=== PATIENT | female | born 1985 | race African-American/Black ===

== ENCOUNTER 2023-04-11 14:53 | Outpatient (CLI) | payer BC | END 2023-04-11 14:54 | disposition home or self-care (01) | LOC: DTY/OP 14:53 | PROVIDERS: ATTEND Surgery | DX: E66.01 Morbid (severe) obesity due to excess calories (principal) | CPT/HCPCS: 97802 ==

== ENCOUNTER 2023-06-28 08:00 | Inpatient (IN) | payer BC ==
[2023-07-05 15:19] VITALS: BMI 53.8
[2023-07-13] MEDS ORDERED: EPINEPHrine 1 MG/ML VIAL ONE (06:52)
[2023-07-13] MEDS ORDERED: Bupivacaine 0.25% HCL 30 ML VIAL ONE (06:52)
[2023-07-13] MEDS ORDERED: fentaNYL 50 mcg/mL 1 mL Vial ONE ×2 (07:19→10:20)
[2023-07-13] MEDS ORDERED: Rocuronium Bromide 10 MG/ML (10ML VIAL) ONE (07:19)
[2023-07-13] MEDS ORDERED: Esmolol 100 MG/10 ML VIAL ONE (07:19)
[2023-07-13] MEDS ORDERED: Lidocaine 1% PF 5 ML VIAL ONE (07:19)
[2023-07-13] MEDS ORDERED: Midazolam HCl 2 mg/2 ml Vial ONE (07:19)
[2023-07-13] MEDS ORDERED: PROPOFOL 20 ML ONE ×2 (07:19→09:12)
[2023-07-13] MEDS ORDERED: CEFAZOLIN 2 GM VIAL ONE (07:21)
[2023-07-13] MEDS ORDERED: Sodium Chloride 0.9% 100 ML ONE (07:21)
[2023-07-13] MEDS ORDERED: Heparin 5,000 UNITS/ML VIAL ONE (07:21)
[2023-07-13] MEDS ORDERED: HYDROmorphone 0.5 MG/0.5 ML SYRINGE ONE (07:39)
[2023-07-13] MEDS ORDERED: Ondansetron PF 4 MG/2 ML Vial ONE (09:03)
[2023-07-13] MEDS ORDERED: Dexamethasone 4 mg/ml Vial ONE (09:03)
[2023-07-13] MEDS ORDERED: SUGAMMADEX SODIUM 200 MG/2 ML VIAL ONE (09:05)
[2023-07-13] MEDS ORDERED: HYDROmorphone 2 MG/ML VIAL ONE (09:13)
[2023-07-13] MEDS ORDERED: diphenhydrAMINE 50 MG/ML VIAL IVP PRN ×2 (09:31→10:02)
[2023-07-13] MEDS ORDERED: Glucagon 1 MG/ML KIT IM PRN (09:31)
[2023-07-13] MEDS ORDERED: Dextrose 50% Abboject 50 ML SYRINGE SLOW IVP PRN (09:31)
[2023-07-13] MEDS ORDERED: Ondansetron PF 4 MG/2 ML Vial IVP PRN (09:31)
[2023-07-13] MEDS ORDERED: Dextrose 5% in Water 1,000 ML IV PRN (09:31)
[2023-07-13] MEDS ORDERED: Hydrocodone-Acetamin 15 ML UDCUP PO PRN (09:31)
[2023-07-13] MEDS ORDERED: Promethazine HCl 25 MG/ML VIAL IM PRN ×2 (09:31→10:02)
[2023-07-13] MEDS ORDERED: hydrALAZINE 20 MG/ML VIAL SLOW IVP PRN (09:31)
[2023-07-13] MEDS ORDERED: Ipratropium/Albuterol 3 ML NEB NEB PRN (09:31)
[2023-07-13] MEDS ORDERED: diphenhydrAMINE 50 MG/ML VIAL IM PRN (10:02)
[2023-07-13] MEDS ORDERED: diphenhydrAMINE 25 MG CAP PO PRN (10:02)
[2023-07-13] MEDS ORDERED: FENTANYL 500 MCG/10 ML VIAL 2,000 MCG in Sodium Chloride 0.9% 60 ML IV PRN (10:02)
[2023-07-13] MEDS ORDERED: Naloxone HCl 0.4 mg/ml Vial IV PRN (10:02)
[2023-07-13] MEDS ORDERED: Communication Order-Pharmacy FS SCH (10:15)
[2023-07-13] MEDS: D5 1/2 NS w/20 mEq KCL 1,000 ML IV SCH ×2 (11:35→15:24)
[2023-07-13] MEDS ORDERED: Ketorolac Tromethamine 30 MG (1 mL) VIAL IVP SCH (12:00)
[2023-07-13] MEDS: CEFAZOLIN 2 GM in Sodium Chloride 0.9% 100 ML IVPB SCH (15:24)
[2023-07-13] MEDS: Ondansetron PF 4 MG/2 ML Vial IVP PRN (16:44)
[2023-07-14] MEDS: D5 1/2 NS w/20 mEq KCL 1,000 ML IV SCH ×3 (00:01→17:16)
[2023-07-14] MEDS: CEFAZOLIN 2 GM in Sodium Chloride 0.9% 100 ML IVPB SCH (00:01)
[2023-07-14] MEDS: Ondansetron PF 4 MG/2 ML Vial IVP PRN (04:34)
[2023-07-14 05:24] LABS: #Monocytes 0.9 thou/uL (0.11-0.59); #Neutrophils 10.6 thou/uL (1.40-6.50); %Basophils 0.2 % (0.0-1.0); %Eosinophils 0.1 % (0.0-10.0); %Lymphocytes 15.3 % (21.0-51.0); %Monocytes 6.6 % (0.0-10.0); %Neutrophils 77.4 % (42.0-75.0); Hematocrit 35.2 % (36.0-47.0); Mean Corpuscular HGB CONC 34.1 g/dL (32.0-36.0); Mean Corpuscular Hemoglobin 31.4 pg (27.0-31.0); Mean Corpuscular Volume 92.1 fl (78.0-98.0); Mean Platelet Volume 9.7 fL (7.4-10.4); Platelet Count 226 10x3/uL (130-400); RBC Distribution Width 13.6 % (11.5-14.5); Red Blood Cell (RBC) Count 3.82 mill/uL (4.20-5.40); White Blood Cell (WBC) Count 13.7 10x3/uL (4.8-10.8)
[2023-07-14 05:56] LABS: Anion Gap 11 mmol/L (10-20); BUN (Urea Nitrogen) 8 mg/dL (7.0-18.7); Calc. Creatinine Clearance 230 mL/min (70-130); Calcium 8.6 mg/dL (7.8-10.44); Carbon Dioxide 22 mmol/L (22-29); Chloride 106 mmol/L (98-107); Estimated GFR 97; Glucose 127 mg/dL (70-105); Potassium 3.7 mmol/L (3.5-5.1); Sodium 135 mmol/L (136-145)
[2023-07-14] MEDS ORDERED: Scopolamine 1 mg/72 hour Patch TD SCH (08:00)
[2023-07-14] MEDS: Enoxaparin 40 MG (0.4 mL) SYRINGE SC SCH (08:39)
[2023-07-14] MEDS: Pantoprazole 40 MG VIAL IVP SCH (08:39)
[2023-07-14] MEDS: Hydrocodone-Acetamin 15 ML UDCUP PO PRN ×2 (14:41→21:40)
[2023-07-15] MEDS: D5 1/2 NS w/20 mEq KCL 1,000 ML IV SCH ×2 (01:13→08:24)
[2023-07-15 07:59] VITALS: TEMP 98.6
[2023-07-15] MEDS: Pantoprazole 40 MG VIAL IVP SCH (08:17)
[2023-07-15] MEDS: Enoxaparin 40 MG (0.4 mL) SYRINGE SC SCH (08:17)
[2023-07-15 11:36] VITALS: BP 138/74
[2023-07-15] MEDS: Hydrocodone-Acetamin 15 ML UDCUP PO PRN (12:54)
== END 2023-07-15 13:35 | disposition home or self-care (01) | DRG 328 ==
LOC: SURG A 07-13 05:53
PROVIDERS: ADMIT Surgery; ATTEND Surgery
PROC: 0DB64Z3 Excision of Stomach, Percutaneous Endoscopic Approach, Vertical (ICD-10-PCS; principal; 2023-07-13)
PROC: 0BQT4ZZ Repair Diaphragm, Percutaneous Endoscopic Approach (ICD-10-PCS; 2023-07-13)
PROC: 8E0W4CZ Robotic Assisted Procedure of Trunk Region, Percutaneous Endoscopic Approach (ICD-10-PCS; 2023-07-13)
PROC: 3E033XZ Introduction of Vasopressor into Peripheral Vein, Percutaneous Approach (ICD-10-PCS; 2023-07-13)
DX: K44.9 Diaphragmatic hernia without obstruction or gangrene (principal); E66.01 Morbid (severe) obesity due to excess calories; Z98.890 Other specified postprocedural states; Z79.899 Other long term (current) drug therapy; Z90.49 Acquired absence of other specified parts of digestive tract; Z82.49 Family history of ischemic heart disease and other diseases of the circulatory system; Z83.3 Family history of diabetes mellitus
CPT/HCPCS: 36415; 80048; 85025; 88307; C9113; J0171; J0665; J1100; J1170; J1644; J1650; J2250; J2405; J2550; J2704; J3010; J3480; J3490

== ENCOUNTER 2023-07-05 14:50 | Outpatient (CLI) | payer BC ==
[2023-07-05 15:59] LABS: #Eosinphils 0.1 10x3/uL (0.0-0.5); #Monocytes 0.6 10x3/uL (0.0-1.1); #Neutrophils 4.5 10x3/uL (1.5-8.4); %Basophils 0.2 % (0.0-2.0); %Eosinophils 0.9 % (0.0-6.0); %Lymphocytes 35.7 % (18.0-47.0); %Monocytes 7.1 % (0.0-10.0); %Neutrophils 55.9 % (40.0-75.0); Hematocrit 38.8 % (34.9-44.5); Hemoglobin 13.1 g/dL (12.0-15.5); Mean Corpuscular HGB CONC 33.8 g/dL (32.0-36.0); Mean Corpuscular Hemoglobin 30.4 pg (27.0-33.0); Mean Platelet Volume 9.6 fl (7.4-10.4); Platelet Count 261 10x3/uL (150-450); RBC Distribution Width 13.1 % (11.5-14.5); Red Blood Cell (RBC) Count 4.31 10x6/uL (3.90-5.03)
[2023-07-05 16:28] LABS: BHCG - Serum Negative (NEGATIVE); Pregs Control Background? CLEAR/WHITE (CLR/WHITE); Pregs Control Bar Appear? YES (CONTROL BAR)
[2023-07-05 16:41] LABS: ALT (SGPT) 16 U/L (8-55); AST (SGOT) 17 U/L (5-34); Alkaline Phosphatase 71 U/L (40-110); Anion Gap 10 mmol/L (10-20); BUN (Urea Nitrogen) 14 mg/dL (7.0-18.7); Bilirubin, Total 1.1 mg/dL (0.2-1.2); Calc. Creatinine Clearance 0 mL/min (70-130); Carbon Dioxide 26 mmol/L (22-29); Chloride 105 mmol/L (98-107); Estimated GFR 94; Globulin 3.9 g/dL (2.4-3.5); Glucose 85 mg/dL (70-105); Potassium 3.9 mmol/L (3.5-5.1); Protein, Total 7.9 g/dL (6.0-8.3); Sodium 137 mmol/L (136-145)
[2023-07-05 20:24] LABS: Hemoglobin A1c 5.1 % (4.0-6.0)
== END 2023-07-05 14:51 | disposition home or self-care (01) ==
LOC: LABBT 14:50
PROVIDERS: ATTEND Surgery
DX: Z01.812 Encounter for preprocedural laboratory examination (principal); E66.01 Morbid (severe) obesity due to excess calories
CPT/HCPCS: 80053; 83036; 84703; 85025